=== PATIENT | female | born 1990 | race Caucasian/White ===

== ENCOUNTER 2019-05-28 00:37 | Outpatient (CLI) | payer OTHER | END 2019-05-28 17:56 | disposition home or self-care (01) | LOC: OBS/DEL 00:37 | DX: O76 Abnormality in fetal heart rate and rhythm complicating labor and delivery (principal); O35.8XX0 Maternal care for other (suspected) fetal abnormality and damage, not applicable or unspecified; Z34.83 Encounter for supervision of other normal pregnancy, third trimester ==

== ENCOUNTER 2019-06-16 08:47 | Inpatient (IN) | payer OTHER ==
[~2019-06-16] VITALS: Ht 162.6 cm; Wt 64.4 kg
[2019-06-16] MEDS ORDERED: PRENATAL TABLE1 EAC1 PO (09:18)
[2019-06-16] MEDS ORDERED: FOLIC ACID1 MG PO (09:19)
[2019-06-16] MEDS ORDERED: SYNTHROID100 MCG (09:19)
== END 2019-06-18 15:30 | disposition home or self-care (01) | DRG 807 ==
LOC: LDR 08:47 → OB/GYN 08:47
PROVIDERS: ADMIT Obstetrics & Gynecology
PROC: 10E0XZZ Delivery of Products of Conception, External Approach (ICD-10-PCS; principal; 2019-06-16)
PROC: 3E033VJ Introduction of Other Hormone into Peripheral Vein, Percutaneous Approach (ICD-10-PCS; 2019-06-16)
PROC: 4A1HXCZ Monitoring of Products of Conception, Cardiac Rate, External Approach (ICD-10-PCS; 2019-06-16)
DX: O80 Encounter for full-term uncomplicated delivery (principal); Z37.0 Single live birth; Z3A.38 38 weeks gestation of pregnancy

== ENCOUNTER 2025-10-18 08:22 | Inpatient (IN) | payer OTHER ==
[~2025-10-18] VITALS: Ht 162.6 cm; Wt 73.9 kg
[2025-10-18] VITALS (9 sets, daily range): BP systolic 90–117; BP diastolic 49–70
[~2025-10-18 08:22] MED LIST: FOLIC ACID1 MG PO; PRENATAL TABLE1 EAC1 PO; SYNTHROID100 MCG
[2025-10-18] MEDS ORDERED: SYNTHROID88 MCG PO (10:15)
[2025-10-18 10:30] LABS: BASO % 0.5 % (0.1-1.2); EOS # 0.03 (0.04-0.54); EOS % 0.3 % (0.7-7.0); LYMPH # 1.57 (1.18-3.74); LYMPH % 17.0 % (19.3-53.1); MEAN PLATELET VOLUME 11.20 fl (9.4-12.4); MONO # 0.95 (0.24-0.82); MONO % 10.3 % (4.7-12.5); NEUT # 6.46 (1.56-6.13); NEUT % 69.7 % (34.0-71.1); RED CELL DISTRIBUTION WIDTH 13.7 % (11.6-14.4)
[2025-10-18 10:39] LABS: URINE APPEARANCE Cloudy; URINE BILIRRUBIN Negative (NEGATIVE); URINE BLOOD Negative; URINE COLOR Yellow; URINE GLUCOSE Negative (NEGATIVE); URINE KETONE Trace (NEGATIVE); URINE LEUKOCYTE Small; URINE NITRATE Negative; URINE PROTEIN Trace (NEGATIVE); URINE UROBILINOGEN 1.0 E.U./dl
[2025-10-18 10:44] LABS: URINE EPITHELIAL CELLS 118.2 uL (0.0-38.8); URINE WBC 40.3 uL (0.0-23.2)
[2025-10-18] MEDS ORDERED: RINGERS SOLUTION,LACTATED 1,000 ML IV SCH (10:45)
[2025-10-18 10:48] LABS: URINE CAST 0.00 uL (0.0-1.40); URINE RBC 1.7 uL (0.0-20.8)
[2025-10-18 11:00] LABS: INR < 0.93
[2025-10-18] MEDS ORDERED: OXYTOCIN 500 ML IV ONE (11:45)
[2025-10-18] MEDS ORDERED: MORPHINE SULFATE 4 MG/ML CARTRIDGE IV ONE (17:45)
[2025-10-18] MEDS ORDERED: ERYTHROMYCIN BASE OPHT 1GM EACH TUBE OP ONE (17:48)
[2025-10-18] MEDS ORDERED: OXYTOCIN 20 UNITS/1000ML RL PIGGYBAG IV ONE (17:49)
[2025-10-18] MEDS ORDERED: CHLORHEXIDINE GLUCONATE 120 ML BOTTLE TOP ONE (17:49)
[2025-10-18] MEDS ORDERED: LIDOCAINE HCL 1% 10ML VIAL ONE (17:49)
[2025-10-18] MEDS ORDERED: ACETAMINOPHEN 500 MG GEL..CAP PO PRN (21:00)
[2025-10-18] MEDS ORDERED: OXYTOCIN 1,000 ML IV SCH (21:00)
[2025-10-18] MEDS ORDERED: CHLORHEXIDINE GLUCONATE 120 ML BOTTLE TOP SCH (21:00)
[2025-10-19 00:22] LABS: BASO % 0.3 % (0.1-1.2); EOS # 0.00 (0.04-0.54); EOS % 0.0 % (0.7-7.0); LYMPH # 1.12 (1.18-3.74); LYMPH % 6.4 % (19.3-53.1); MEAN PLATELET VOLUME 11.50 fl (9.4-12.4); MONO # 0.89 (0.24-0.82); MONO % 5.1 % (4.7-12.5); NEUT # 15.40 (1.56-6.13); NEUT % 87.3 % (34.0-71.1); RED CELL DISTRIBUTION WIDTH 13.6 % (11.6-14.4)
[2025-10-19 04:23] VITALS: BP 109/58
[2025-10-19 07:40] VITALS: BP 105/64
[2025-10-19] MEDS ORDERED: PNV,CALCIUM 72/IRON/FOLIC ACID 1 TAB TABLET PO SCH (09:00)
[2025-10-19 13:59] VITALS: BP 105/69
[2025-10-19 16:25] VITALS: BP 102/66
[2025-10-20] VITALS: BP 119/73
[2025-10-20 08:00] VITALS: BP 100/69
[2025-10-20] MEDS ORDERED: FF) RHO(D) IMMUNE GLOBULIN (POM) IM STA (09:44)
[2025-10-20 16:55] VITALS: BP 110/66
[2025-10-20] MEDS ORDERED: PRENATAL VITAM1 EAC5 PO (17:44)
[2025-10-20] MEDS ORDERED: IBU800 MG PO (17:44)
== END 2025-10-20 18:25 | disposition home or self-care (01) | DRG 807 ==
LOC: OB/GYN 08:22 → LDR 08:22 → OB/GYN 10-19 09:48
PROVIDERS: ADMIT Obstetrics & Gynecology; ATTEND Obstetrics & Gynecology
PROC: 10E0XZZ Delivery of Products of Conception, External Approach (ICD-10-PCS; principal; 2025-10-18)
PROC: 4A1HXCZ Monitoring of Products of Conception, Cardiac Rate, External Approach (ICD-10-PCS; 2025-10-18)
DX: O80 Encounter for full-term uncomplicated delivery (principal); Z37.0 Single live birth; Z3A.39 39 weeks gestation of pregnancy